=== PATIENT | female | born 1955 | race Caucasian/White ===

== ENCOUNTER 2016-11-01 14:17 | Emergency (ER) | payer OTHER ==
[~2016-11-01] VITALS: Ht 152.4 cm; Wt 62.0 kg
[2016-11-01 14:22] VITALS: BP 142/88; PULSE 75; RESP 18; TEMP 98.4; O2SAT 99
[2016-11-01] MEDS ORDERED: BUPIVACAINE HCL PF 0.5% 10 ML VIAL INFIL ONE (14:45)
--- NOTE | 2016-11-01 14:46 | PD ---
HPI Chief Complaint: Laceration/Skin Injury Time Seen by Provider: 14:31 Travel History International Travel<30 days: No Contact w/Intl Traveler<30days: No History of Present Illness HPI 60-year-old female presents the emergency department with injury to the distal left third digit from a screen cutter and trimmer. Patient sustained a couple of lacerations to the distal third digit of the right hand. This did involve the lateral side of the nailbed. Patient is complaining of 8 out of 10 pain. Bleeding is currently controlled by pressure. She is up-to-date on her tetanus shot. She has no known drug allergies. [facility] Past Medical History ?: Not Social History Alcohol Use: Yes Tobacco Use: No Substance Use: No Allergies-Medications (Allergen,Severity, Reaction): Coded Allergies: No Known Allergies (Unverified , 11/01/16) Review of Systems Except as stated in HPI: all other systems reviewed are Neg General / Constitutional: No: Fever Eyes: No: Visual changes HENT: No: Headaches Cardiovascular: No: Chest Pain or Discomfort Respiratory: No: Shortness of Breath Gastrointestinal: No: Abdominal Pain Genitourinary: No: Dysuria Musculoskeletal: No: Pain Skin: No Rash Neurologic: No: Weakness Psychiatric: No: Depression Endocrine: No: Polydipsia Hematologic/Lymphatic: No: Easy Bruising Physical Exam Narrative GENERAL: Patient appears in mild distress. SKIN: Warm and dry. Normal color. Normal turgor. Patient has 2 linear lacerations noted to the distal left third digit with a small laceration to the lateral edge of the distal third fingernail. HEAD: Atraumatic. Normocephalic. EYES: Pupils equal and round. No scleral icterus. No injection or drainage. ENT: No nasal bleeding or discharge. Mucous membranes pink and moist. Pharynx is clear. NECK: Trachea midline. Supple nontender CARDIOVASCULAR: Regular rate and rhythm. RESPIRATORY: No accessory muscle use. Clear to auscultation. Breath sounds equal bilaterally. MUSCULOSKELETAL: Extremities without clubbing, cyanosis, or edema. No obvious deformities. NEUROLOGICAL: Awake and alert. No obvious cranial nerve deficits. Motor grossly within normal limits. Five out of 5 muscle strength in the arms and legs. Normal speech. PSYCHIATRIC: Appropriate mood and affect; insight and judgment normal. Data Data Last Documented VS Vital Signs Date Time Temp Pulse Resp B/P (MAP) Pulse Ox O2 Delivery O2 Flow Rate FiO2 11/01/16 14:22 98.4 75 18 142/88 (106) 99 Room Air Orders Orders Bupivacaine Pf 0.5% Inj (Marcaine Pf 0.5 (11/01/16 14:45) Finger ([id number]) (11/01/16 14:35) Ice/Cold Pack (11/01/16 14:35) Cefazolin Inj (Ancef Inj) (11/01/16 15:00) MDM Medical Decision Making Medical Screen Exam Complete: Yes Emergency Medical Condition: Yes Differential Diagnosis Crush injury left third finger. Fingernail injury left third finger. Laceration left third finger. Possible fracture. Narrative Course Patient is medically stable at time of exam. Digital block consisting of 3 mL 0.5% bupivacaine placed with good anesthetic effect. X-rays are obtained. X-ray shows small tuft fracture making this an open fracture wound. Patient is given 500 mg Ancef IM. Wound area soaked in 10% Betadine solution for 10 minutes. Wound is closed. See laceration note. Xeroform and bulky bandage is placed, and is to remain in place for the next 4 days. Patient should follow with her primary care physician on Friday or return here for wound check. Sutures should remain in place for 7-10 days. Patient is placed on Keflex 500 mg 3 times a day for 7 days. Patient is given tramadol 50 mg one every 6 hours when necessary pain #20 Patient should return to emergency Department with any worsening symptoms as needed. Procedures Procedure Narrative LACERATION LOCATION: 2 parallel linear lacerations to the distal left third digit each measuring 0.5 cm LENGTH: 1 cm tone NUMBER OF STITCHES/KRIS: 5 simple interrupted REPAIR: The area of the laceration was prepped with Betadine and sterilely draped. Digital block of the right third digit consisting of 3 mL 0.5% bupivacaine placed with good anesthetic effect. The wound was copiously irrigated and explored without evidence of foreign body, tendon injury or neurovascular injury. The wound was closed using 5-0 Prolene. This was a single layer repair. A sterile dressing was applied. The patient was advised to keep the dressing clean and dry. Patient tolerated the procedure well. Diagnosis Primary Impression: Open fracture of finger, distal phalanx Qualified Codes: S62.662B - Nondisplaced fracture of distal phalanx of right middle finger, initial encounter for open fracture Additional Impression: Nailbed laceration, finger Qualified Codes: S61.319A - Laceration without foreign body of unspecified finger with damage to nail, initial encounter Referrals: Primary Care Physician 3 days Patient Instructions: Finger Laceration (ED), General Instructions Additional Instructions: X-ray shows small tuft fracture making this an open fracture wound. Patient is given 500 mg Ancef IM. Wound area soaked in 10% Betadine solution for 10 minutes. Wound is closed. See laceration note. Xeroform and bulky bandage is placed, and is to remain in place for the next 4 days. Patient should follow with her primary care physician on Friday or return here for wound check. Sutures should remain in place for 7-10 days. Patient is placed on Keflex 500 mg 3 times a day for 7 days. Patient is given tramadol 50 mg one every 6 hours when necessary pain #20 Patient should return to emergency Department with any worsening symptoms as needed. Med/Other Pt SpecificInfo: Prescription(s) given, Wound Care Disposition: 01 DISCHARGE HOME Condition: Stable Wellington Barriga Nov 01, 2016 14:46
--- NOTE | 2016-11-01 15:25 | RADRPT ---
EXAM DATE/TIME: 11/01/2016 14:50 [place] COMPARISON: No previous studies available for comparison. INDICATIONS : Left hand, third digit pain and laceration to tip of finger using hedge trimmers. MEDICAL HISTORY : None. SURGICAL HISTORY : Left wrist ORIF. ENCOUNTER: Initial ACUITY: 1 day PAIN SCORE: 7/10 LOCATION: Left hand, third digit. FINDINGS: 3 views of the left third finger show osteopenia. No fracture or dislocation. Fusion plate is seen ac ross the radiocarpal and intercarpal joints. Soft tissues are unremarkable. CONCLUSION: No acute abnormality. Alexander Monson Jr., MD on November 01, 2016 at 15:21 Board Certified Radiologist. This report was verified electronically.
[2016-11-01] MEDS ORDERED: TRAM50TA PO (15:42)
[2016-11-01] MEDS ORDERED: CEPH-460 PO (15:42)
== END 2016-11-01 16:25 | disposition home or self-care (01) ==
LOC: NEPK 14:17
DX: S61.313A Laceration without foreign body of left middle finger with damage to nail, initial encounter (principal); W27.1XXA Contact with garden tool, initial encounter
CPT/HCPCS: 12001; 73140; 96372; 99284; J0690

== ENCOUNTER 2016-11-02 12:29 | Emergency (ER) | payer OTHER ==
[~2016-11-02 12:29] MED LIST: CEPH-460 PO; TRAM50TA PO
== END 2016-11-02 12:56 | disposition left against medical advice (07) ==
LOC: PHED 12:29
DX: M79.645 Pain in left finger(s) (principal); Z53.21 Procedure and treatment not carried out due to patient leaving prior to being seen by health care provider
CPT/HCPCS: 99281